=== PATIENT | female | born 1940 | race Caucasian/White ===

== ENCOUNTER 2016-08-31 08:05 | Emergency (ER) | payer MEDICARE, BC ==
[~2016-08-31] VITALS: Ht 157.5 cm; Wt 60.0 kg
[2016-08-31 08:10] VITALS: Ht 157.5 cm; Wt 60.0 kg
--- NOTE | 2016-08-31 08:21 | ERD ---
ER Documentation Chief Complaint Date/Time DATE: 08/31/16 TIME: 08:17 Chief Complaint BIB RA FROM HOME RT HIP PAIN HPI Patient is a 76-year-old female presents with sudden onset, constant, moderate pain to her right hip for approximately 45 minutes after she felt her hip pop out of joint. She states that she was standing in the bathroom and trying to clean a wound on her leg from a dog scratch. She denies fall or other trauma. The patient reports that she had her hip replaced in 1992, and has had it dislocate approximately 3 times. The last time was 2 years ago. She denies numbness in her foot. Last p.o. intake was last night. ROS All systems reviewed and are negative except as per history of present illness. Medications Home Meds Active Scripts Bacitracin-Polymyxin* (Polysporin* Topical) 28.35 Gm Oint, 1 APPLIC TOP BID for 5 Days, TUB Prov:ADBI BRAN MD 08/31/16 PMhx/Soc Past medical history: None Past surgical history: Bilateral hip replacement Social history: Denies tobacco or alcohol FmHx Family History: No coronary disease, No diabetes Physical Exam Vitals Vital Signs Date Time Temp Pulse Resp B/P Pulse Ox O2 Delivery O2 Flow Rate FiO2 08/31/16 11:22 97.9 78 18 146/69 100 Room Air 15.0 08/31/16 10:50 76 18 144/67 100 Room Air 08/31/16 10:35 77 18 154/76 99 Room Air 08/31/16 10:30 76 18 161/71 100 Non Rebreather 15.0 08/31/16 10:25 72 18 183/87 100 Non Rebreather 15.0 08/31/16 10:20 71 18 138/73 100 Non Rebreather 15.0 08/31/16 10:18 97.9 77 18 181/83 100 Non Rebreather 15.0 08/31/16 10:15 79 18 165/78 99 Room Air 08/31/16 08:10 98.1 80 16 176/82 99 Physical Exam Const: Alert, no acute distress Head: Atraumatic Eyes: Normal Conjunctiva, no pallor, no icterus ENT: Normal External Ears, Nose and Mouth. Mucous membranes moist Neck: Full range of motion..~ No meningismus. Resp: Clear to auscultation bilaterally, no wheezes, no rales Cardio: Regular rate and rhythm, no murmurs Abd: Soft, non tender, non distended. Skin: No petechiae or rashes Back: No midline or flank tenderness Ext: No cyanosis, or edema. Right limb shortening with external rotation and knee held in flexion. 2+ DP pulse, moves and feels all toes. 3 abrasions and one small puncture wound on the right lower leg without surrounding erythema or discharge. Neur: Awake and alert, cranial nerves II through XII intact bilaterally, moves and feels 4 extremities. Psych: Normal Mood and Affect Results 24 hrs Current Medications Medications (Trade) Dose Ordered Sig/Olivier Route PRN Reason Start Time Stop Time Status Last Admin Dose Admin Fentanyl (Sublimaze) 50 mcg ONCE ONCE IV 08/31/16 08:30 08/31/16 08:31 DC 08/31/16 10:17 Propofol (Diprivan) 200 mg ONCE ONCE IV 08/31/16 08:30 08/31/16 08:31 DC Procedures/MDM Procedural Sedation: Pre-assessment performed. See preceding complete history and physical for details. Time out performed. See sedation documentation for details. Risk, benefits and alternatives were discussed with the patient. ASA class I Mallampati 2 N.p.o. greater than 8 hours Medication(s): Propofol Complications: No hypoxic or apneic events Recovered without incident. A minimum of 16 minutes of face to face time was performed including preparation, sedation and recovery time. Procedure: Reduction of dislocation of right hip. I reviewed the patient's preprocedure x-ray. The patient was consented verbally for procedure. Neurovascular exam was performed prior to procedure and was normal. The patient was sedated with propofol, and received fentanyl for analgesia. The patient was adequately sedated traction was placed on the right hip while countertraction was held on the pelvis. The hip was internally and externally rotated with traction and 3 attempts until it was felt to move into anatomical place. After reduction, limb shortening was improved, and range of motion of the limb was normalized. A repeat neurovascular exam was normal. The patient had resolution of her pain and normalized function of the limb. There was no complication noted. MDM: Patient is a 76-year-old female who presents with dislocation of a prosthetic right hip. She was consented for reduction under procedural sedation with propofol. Procedure was performed without incident and following the procedure, the patient is able to ambulate without any pain. Repeat neurovascular exam is normal. There were no associated injuries. The patient was advised to follow-up with her orthopedic surgeon in 2 days on Friday. The patient also had abrasions from a dog scratch without signs of infection. She was given a prescription for topical antibiotic and advised on return precautions for signs of infection. Departure Diagnosis: Primary Impression: Hip dislocation, right Encounter type: initial encounter Qualified Code: S73.004A - Hip dislocation , right, initial encounter Additional Impression: Dog scratch Condition: ABDI Ventura MD Aug 31, 2016 08:21
[2016-08-31] MEDS ORDERED: PROPOFOL 200 MG INJ IV ONE (08:30)
[2016-08-31] MEDS ORDERED: FENTAnyl 50 MCG/ML VIAL IV ONE (08:30)
--- NOTE | 2016-08-31 10:09 | RADRPT ---
PROCEDURE: XR right Hip. CLINICAL INDICATION: pain, deformity TECHNIQUE: AP and frog lateral views of the hip were performed. COMPARISON: None. FINDINGS: The right total hip arthroplasty is present. The femoral head component is dislocated superiorly relative to the acetabular cup. No definite fracture is identified. The soft tissues are unremarkable. IMPRESSION: 1. The right total hip arthroplasty is present. 2. The right femoral head component is dislocated superiorly relative to the acetabular cup. RPTAT:AAJJ Physician Gris Date Time Electronically viewed and signed by Jasper Marvin Physician on 08/31/2016 10:09 SHILA/
[2016-08-31] MEDS ORDERED: POLY30OI TOP (10:57)
[2016-08-31 11:22] VITALS: BP 146/69; PULSE 78; RESP 18; TEMP 97.9
== END 2016-08-31 11:23 | disposition home or self-care (01) ==
LOC: E/R 08:05
DX: S73.004A Unspecified dislocation of right hip, initial encounter (principal); X50.9XXA Other and unspecified overexertion or strenuous movements or postures, initial encounter; Y92.9 Unspecified place or not applicable; Z96.643 Presence of artificial hip joint, bilateral
CPT/HCPCS: 27250; 73510; 96374; 99285; J3010